=== PATIENT | female | born 1990 | race African-American/Black ===

== ENCOUNTER 2018-08-02 16:43 | Emergency (ER) | payer OTHER ==
[~2018-08-02] VITALS: Ht 154.9 cm; Wt 68.0 kg
[2018-08-02 17:17] LABS: ABSOLUTE BASOPHILS 0.1 thou/uL (0.0-0.2); ABSOLUTE EOSINOPHILS 0.2 thou/uL (0.0-0.7); ABSOLUTE LYMPHOCYTES 1.9 thou/uL (0.8-5.3); ABSOLUTE MONOCYTES 0.5 thou/uL (0.0-1.2); ABSOLUTE NEUTROPHILS 4.2 thou/uL (1.6-8.1); BASOPHILS 0.8 %; EOSINOPHILS 3.5 %; LYMPHOCYTES 27.2 %; MCH 26.2 pg (26.0-34.0); MCHC 32.5 g/dL (28.0-37.0); MCV 80.5 fL (80.0-100.0); MONOCYTES 7.1 %; MPV 8.4 fl. (7.2-11.1); NUCLEATED RBCS 0 /100WBC; PLATELET COUNT* 315 thou/uL (150-400); POLYS 61.4 %; RBC 4.97 mil/uL (4.20-5.00); RDW-CV 15.2 % (10.5-14.5); WBC 6.8 thou/uL (4.0-11.0)
[2018-08-02 17:23] LABS: CREATININE 0.8 mg/dL (0.6-1.3); POTASSIUM 3.7 mmol/L (3.5-5.1)
[2018-08-02 17:29] LABS: ALBUMIN 3.3 g/dL (3.4-5.0); TOTAL BILIRUBIN 0.4 mg/dL (<0.1-1.0); TOTAL PROTEIN 8.3 g/dL (6.4-8.2)
[2018-08-02 17:35] LABS: URINE BILIRUBIN NEGATIVE (Negative); URINE BLOOD NEGATIVE (Negative); URINE CLARITY TURBID; URINE COLOR YELLOW; URINE GLUCOSE-RANDOM NEGATIVE (Negative); URINE KETONES NEGATIVE (Negative); URINE LEUKOCYTES-REFLEX NEGATIVE (Negative); URINE NITRITE-REFLEX NEGATIVE (Negative); URINE PROTEIN NEGATIVE (Negative); URINE SPECIFIC GRAVITY >= 1.030 (1.005-1.030); URINE UROBILINOGEN 0.2 E.U./dl (0.2-1.0)
[2018-08-02 18:01] LABS: MUCUS 4-6 Moderate strn/LPF (None Seen); SQUAMOUS >10 Many /LPF (0-3)
[2018-08-02 18:02] LABS: CASTS None Seen /LPF (None Seen); CRYSTALS None Seen /LPF (None Seen); URINE RBC None Seen /HPF (0-2); URINE WBC-REFLEX 0-5 Rare /HPF (0-5)
[2018-08-02] MEDS ORDERED: ZOFRAN ODT4 MG PO (18:54)
[2018-08-02 19:06] VITALS: BP 127/81
== END 2018-08-02 19:06 | disposition home or self-care (01) ==
LOC: M.ERS 16:43
PROVIDERS: Nurse Practitioner Family
DX: K52.9 Noninfective gastroenteritis and colitis, unspecified (principal); Z88.0 Allergy status to penicillin; Z88.2 Allergy status to sulfonamides

== ENCOUNTER 2019-04-06 20:30 | Emergency (ER) | payer OTHER ==
[~2019-04-06] VITALS: Ht 154.9 cm; Wt 63.5 kg
[~2019-04-06 20:30] MED LIST: ZOFRAN ODT4 MG PO
[2019-04-06] MEDS ORDERED: ROBAXIN 750 MG750 MG PO (21:48)
[2019-04-06] MEDS ORDERED: MEDROLDOSEPACK PO (21:48)
[2019-04-06] MEDS ORDERED: ACETAMINOPHEN-1 EAC1 PO (21:48)
[2019-04-06 21:55] VITALS: BP 132/79
== END 2019-04-06 21:56 | disposition home or self-care (01) ==
LOC: M.ERS 20:30
DX: S16.1XXA Strain of muscle, fascia and tendon at neck level, initial encounter (principal); S80.11XA Contusion of right lower leg, initial encounter; R51 Headache; V89.2XXA Person injured in unspecified motor-vehicle accident, traffic, initial encounter; Y93.89 Activity, other specified; Y92.89 Other specified places as the place of occurrence of the external cause; Y99.8 Other external cause status; Z88.0 Allergy status to penicillin; Z88.2 Allergy status to sulfonamides